=== PATIENT | female | born 1980 | race Caucasian/White ===

== ENCOUNTER 2020-10-26 12:52 | Outpatient (CLI) | payer BC, SELFPAY ==
--- NOTE | ~2020-10-26 | NM_ITS ---
EXAMINATION: FARHEEN roblero renal scan DATE: 10/26/2020 19:10 INDICATION: Bilateral hydronephrosis. TECHNIQUE: An 0.7 mCi Tc-99m MAG3 was administered IV. 40 mg furosemide was administered IV immediat ita afterward. The patient was scanned in the supine position. A posterior abdominal radionuclide ang iogram was obtained. A subsequent time course of static images of the kidneys, ureters, and bladder w as obtained. COMPARISON: None FINDINGS: The posterior abdominal radionuclide angiogram and sequential static images show normal size, positio n, and morphology of the kidneys. Peak renal parenchymal uptake was 2.5 min in left kidney and 0.5 mi n in right kidney (normal peak 3-5 minutes). The relative early renal uptake was 52% on the left and 38% on the right (<40% is abnormal). No abnormalities of the ureters or bladder are seen. T1/2 for clearance of activity from the left kidney and proximal collecting system was 6 minutes. T1/2 for clearance of activity from the right kidney and proximal collecting system was 5 minutes. Notes on interpretation: T1/2 <10 minutes is normal, 10-15 minutes is low grade obstruction of questi onable clinical significance, 15-20 minutes is partial obstruction that is likely clinically signific ant, >20 minutes is high grade obstruction. Note that false positives may be seen with supine positio preston, dehydration, severely dilated nonobstructed kidney, atonic collecting system, poor renal functi on, and chronic furosemide use. IMPRESSION: 1. Symmetric kidney function. 2. No delay in contrast clearance from either kidney to suggest fixed obstruction. Reviewed, dictated and finalized at location A. IMPRESSION: 1. Symmetric kidney function. 2. No delay in contrast clearance from either kidney to suggest fixed obstruct ion.
== END 2020-10-26 12:53 | disposition home or self-care (01) ==
LOC: ANHIMG 13:00
PROVIDERS: PCP Family Medicine; Visit Provider Urology
DX: N13.30 Unspecified hydronephrosis (principal)
CPT/HCPCS: 78708; A9562; J1940

== ENCOUNTER 2024-01-21 10:59 | Outpatient (CLI) | payer BC, SELFPAY ==
--- NOTE | ~2024-01-21 | XR_ITS ---
XR abdomen/kub 1V Ordering provider: Dannielle Conrad, PENSION EXAMINER History: . RIGHT FLANK PAIN . Comparison: None. FINDINGS: BOWEL: Fecal material seen in the colon. Nonobstructive bowel gas pattern. ORGANOMEGALY: None. SIGNIFICANT PATHOLOGIC CALCIFICATIONS: Possibility of faintly calcified stone in the right kidney is not excluded. Fecal material is overlapping the right kidney OTHER: No free air is seen under the diaphragm. IMPRESSION: NO ACUTE ABDOMINAL FINDINGS. Possible faintly calcified stone in the right kidney area. CT without contrast is advised. Constipation. Reviewed, dictated and finalized at location A.
--- NOTE | ~2024-01-21 | CT_ITS ---
EXAMINATION: CT abdomen pelvis wo con DATE: 01/21/2024 11:16 INDICATION: Right flank pain TECHNIQUE: Computed tomography (CT) of the abdomen and pelvis was performed without intravenous contr ast. Automated exposure control and iterative reconstruction technique were employed. The dose-length product was 324.84 mGy-cm. COMPARISON: None FINDINGS: Discoid atelectasis in the right middle lobe. Heart size normal. No pericardial or pleural effusion. 2.5 similar cyst in the right hepatic lobe. Small calcified gallstone at the dependent aspect of the otherwise normal-appearing gallbladder with no gallbladder wall thickening or pericholecystic inflamm atory stranding to suggest acute cholecystitis. Spleen, pancreas and bilateral adrenal glands are nor mal. Kidneys and ureters are normal with no urolithiasis, hydroureteronephrosis or perinephric/ureter al stranding. Bladder and anteverted uterus are normal. Bowels including the appendix are normal. Min imal amount of likely physiologic free fluid in the pelvis. No abscess or free intraperitoneal gas. N o pathologically enlarged abdominal or pelvic lymphadenopathy. Mild lumbar levocurvature with minimal spondylosis. IMPRESSION: 1. No acute intra-abdominal/pelvic process. Specifically normal appendix and no urolithiasis. 2. Cholelithiasis without findings of biliary obstruction or acute cholecystitis. Reviewed, dictated and finalized at location B. IMPRESSION: 1. No acute intra-abdominal/pelvic process. Specifically normal appendix and no urolithiasis. 2. Cholelithiasis without findings of biliary obstruction or acute cholecystiti s.
== END 2024-01-21 11:00 | disposition home or self-care (01) ==
LOC: ANHIMG 10:59
PROVIDERS: PCP Family Medicine; Visit Provider Nurse Practitioner Family
DX: K80.20 Calculus of gallbladder without cholecystitis without obstruction (principal); K59.00 Constipation, unspecified
CPT/HCPCS: 74018; 74176